=== PATIENT | female | born 1995 | race Two or more races ===

== ENCOUNTER 2025-02-22 22:12 | Emergency (ER) | payer OTHER ==
[~2025-02-22] VITALS: Ht 172.7 cm; Wt 55.3 kg
[2025-02-22 22:15] VITALS: BP 109/71; O2SAT 98
[2025-02-22] MEDS ORDERED: FAMOTIDINE/PF 20 MG in 0.9 % SODIUM CHLORIDE 8 ML IV PUSH STA (22:40)
[2025-02-22] MEDS ORDERED: ONDANSETRON HCL 2 MG/ML VIAL IV ONE (22:45)
[2025-02-22] MEDS ORDERED: 0.9 % SODIUM CHLORIDE 1,000 ML IV SCH (22:45)
[2025-02-22 23:16] LABS: BASO % 1.1 % (0.1-1.2); EOS # 0.24 (0.04-0.54); EOS % 3.7 % (0.7-7.0); HEMATOCRIT 40.6 % (34.1-44.9); LYMPH # 2.26 (1.18-3.74); LYMPH % 34.5 % (19.3-53.1); MEAN CORPUSCULAR HEMOGLOBIN 31.9 pg (25.6-32.2); MONO # 0.39 (0.24-0.82); NEUT # 3.58 (1.56-6.13); NEUT % 54.5 % (34.0-71.1); PLATELET COUNT 285 K/uL (163-369); RED BLOOD COUNT 4.39 M/uL (3.93-5.22); RED CELL DISTRIBUTION WIDTH 11.9 % (11.6-14.4)
[2025-02-22 23:40] LABS: ALBUMIN 4.3 gm/dL (3.4-5.0); BILIRUBIN TOTAL 0.24 mg/dL (0.3-1.2); CALCIUM 9.7 mg/dL (8.5-10.1); CREATININE SERUM 1.18 mg/dL (0.55-1.02); GFR 53.42; GLOBULINA 3.9 G/DL (2.4-3.5); POTASSIUM 3.67 mEq/L (3.5-5.1); TOTAL PROTEIN 8.2 gm/dL (6.4-8.2)
[2025-02-23] MEDS ORDERED: BARIUM SULFATE 450 ML ORAL.SUSP PO ONE (00:02)
[2025-02-23] MEDS ORDERED: ZOFRAN8 MG PO (05:16)
[2025-02-23] MEDS ORDERED: LEVSIN/SL0.125 MG SL (05:16)
[2025-02-23] MEDS ORDERED: INTESTINEX680 M1 PO (05:16)
== END 2025-02-23 05:24 | disposition home or self-care (01) ==
LOC: ER 23:12
PROVIDERS: General Practice
DX: R10.32 Left lower quadrant pain (principal); K52.89 Other specified noninfective gastroenteritis and colitis